=== PATIENT | male | born 1950 | race Caucasian/White ===

== ENCOUNTER 2019-07-31 13:14 | Emergency (ER) | payer MEDICARE, OTHER ==
[~2019-07-31] VITALS: Ht 170.2 cm; Wt 86.0 kg
[~2019-07-31 13:14] MED LIST: ALPR-624 PO; DOCU50CA3 PO; ENOX100S3 SQ; METO1TAB25 PO; OMEP40CA13 PO; ONDA4TAB6 PO; OXYC-658 PO
[2019-07-31] MEDS ORDERED: aspirin 81mg tab.chew PO ONE (13:25)
[2019-07-31 13:56] LABS: BASOPHILS # (AUTO) 0.1 X10'3 (0-0.2); BASOPHILS % (AUTO) 1.1 % (0-1); EOSINOPHILS # (AUTO) 0.3 X10'3 (0-0.9); HEMATOCRIT 48.6 % (42.0-52.0); HEMOGLOBIN 15.9 g/dl (14.0-17.9); LYMPHOCYTES # (AUTO) 1.4 X10'3 (1.1-4.8); LYMPHOCYTES % (AUTO) 15.8 % (21-51); MEAN CORPUSCULAR HEMOGLOBIN 26.1 PG (27.0-31.0); MEAN CORPUSCULAR HGB CONC 32.7 g/dL (33.0-36.5); MEAN CORPUSCULAR VOLUME 79.7 FL (78-98); MONOCYTES # (AUTO) 1.6 X10'3 (0-0.9); MONOCYTES % (AUTO) 17.2 % (2-12); NEUTROPHILS # (AUTO) 5.7 X10'3 (1.8-7.7); NEUTROPHILS % (AUTO) 62.9 % (42-75); PLATELET COUNT 178 X10'3 (140-440); RED BLOOD COUNT 6.09 X10'6 (4.70-6.10); RED CELL DISTRIBUTION WIDTH 17.5 % (11.5-14.5); WHITE BLOOD COUNT 9.1 X10'3 (4.5-11.0)
[2019-07-31] MEDS ORDERED: iohexol 350MG/ML 100ml bottle IV ONE (13:59)
[2019-07-31 14:09] LABS: ALANINE AMINOTRANSFERASE 36 U/L (12-78); ALBUMIN 3.5 G/DL (3.4-5.0); ALBUMIN/GLOBULIN RATIO 0.9 (1.1-1.5); ALKALINE PHOSPHATASE 100 IU/L (46-116); ANION GAP 5 (8-16); ASPARTATE AMINO TRANSFERASE 17 U/L (10-37); BILIRUBIN,TOTAL 1.5 MG/DL (0.1-1.0); BLOOD UREA NITROGEN 14 MG/DL (7-18); BUN/CREATININE RATIO 13.5 (5.4-32.0); CALCIUM 9.5 MG/DL (8.5-10.1); CHLORIDE 105 MMOL/L (99-107); CREATININE 1.04 MG/DL (0.60-1.10); GLUCOSE 124 MG/DL (70-104); POTASSIUM 4.4 MMOL/L (3.5-5.1); SODIUM 140 MMOL/L (135-145); TOTAL CARBON DIOXIDE 30.1 MMOL/L (24-32); TOTAL PROTEIN 7.3 G/DL (6.4-8.2); eGFR 71 ML/MIN
[2019-07-31] MEDS ORDERED: LORazepam 2 mg/ml vial IV ONE (14:15)
[2019-07-31 14:16] LABS: MAGNESIUM 1.7 MG/DL (1.5-2.4)
[2019-07-31 14:34] LABS: PLATELET ESTIMATE NORMAL; TOTAL CELLS COUNTED 100
[2019-07-31 14:35] LABS: ANISOCYTOSIS 1+; MICROCYTOSIS 1+
--- NOTE | 2019-07-31 14:45 | NUR ---
Pt. to CT
--- NOTE | 2019-07-31 15:07 | NUR ---
Pt. back from CT
[2019-07-31] MEDS ORDERED: ondansetron/PF 4mg/2ml inj IV ONE (15:20)
[2019-07-31] MEDS ORDERED: morphine 4 MG/ML inj SYRINge IV ONE (15:20)
[2019-07-31 15:47] VITALS: BP 105/61
== END 2019-07-31 15:49 | disposition home or self-care (01) ==
LOC: ER 13:15
DX: R07.89 Other chest pain (principal); I48.91 Unspecified atrial fibrillation; I12.9 Hypertensive chronic kidney disease with stage 1 through stage 4 chronic kidney disease, or unspecified chronic kidney disease; N18.9 Chronic kidney disease, unspecified; Z87.442 Personal history of urinary calculi; Z98.890 Other specified postprocedural states; Z95.0 Presence of cardiac pacemaker; Z79.899 Other long term (current) drug therapy; Z86.73 Personal history of transient ischemic attack (TIA), and cerebral infarction without residual deficits
CPT/HCPCS: 36415; 71275; 80053; 83735; 83880; 84484; 85025; 85379; 93005; 96374; 96375; 99285; J2060; J2270; J2405; Q9967

== ENCOUNTER 2019-09-17 10:55 | Emergency (ER) | payer OTHER ==
[~2019-09-17] VITALS: Ht 170.2 cm; Wt 95.4 kg
[~2019-09-17 10:55] MED LIST changes: -ALPR-624 PO; +AMOX-580 PO; +APIX5TAB3 PO; +DILT240C88 PO; -DOCU50CA3 PO; -ENOX100S3 SQ; +GABA-530 PO; +LOSA50TA3 PO; -METO1TAB25 PO; +MULT-20 PO; -ONDA4TAB6 PO; -OXYC-658 PO; +PRAV40TA3 PO; +THIA100T66 PO
[2019-09-17 11:35] LABS: BASOPHILS # (AUTO) 0.1 X10'3 (0-0.2); BASOPHILS % (AUTO) 0.9 % (0-1); EOSINOPHILS # (AUTO) 0.1 X10'3 (0-0.9); EOSINOPHILS % (AUTO) 1.2 % (0-6); HEMATOCRIT 30.6 % (42.0-52.0); HEMOGLOBIN 9.8 g/dl (14.0-17.9); LYMPHOCYTES # (AUTO) 1.3 X10'3 (1.1-4.8); LYMPHOCYTES % (AUTO) 10.9 % (21-51); MEAN CORPUSCULAR HEMOGLOBIN 27.6 PG (27.0-31.0); MEAN CORPUSCULAR HGB CONC 31.9 g/dL (33.0-36.5); MEAN CORPUSCULAR VOLUME 86.4 FL (78-98); MONOCYTES # (AUTO) 1.1 X10'3 (0-0.9); MONOCYTES % (AUTO) 9.5 % (2-12); NEUTROPHILS % (AUTO) 77.5 % (42-75); PLATELET COUNT 419 X10'3 (140-440); RED BLOOD COUNT 3.54 X10'6 (4.70-6.10); RED CELL DISTRIBUTION WIDTH 20.2 % (11.5-14.5); WHITE BLOOD COUNT 11.6 X10'3 (4.5-11.0)
[2019-09-17 11:49] LABS: ANISOCYTOSIS 3+; PLATELET ESTIMATE NORMAL
[2019-09-17 11:57] LABS: ALANINE AMINOTRANSFERASE 39 U/L (12-78); ALBUMIN 2.3 G/DL (3.4-5.0); ALBUMIN/GLOBULIN RATIO 0.6 (1.1-1.5); ALKALINE PHOSPHATASE 98 IU/L (46-116); ANION GAP 4 (8-16); ASPARTATE AMINO TRANSFERASE 44 U/L (10-37); BILIRUBIN,TOTAL 1.5 MG/DL (0.1-1.0); BLOOD UREA NITROGEN 7 MG/DL (7-18); BUN/CREATININE RATIO 7.1 (5.4-32.0); CALCIUM 9.3 MG/DL (8.5-10.1); CHLORIDE 105 MMOL/L (99-107); CREATININE 0.98 MG/DL (0.60-1.10); GLUCOSE 117 MG/DL (70-104); POTASSIUM 4.3 MMOL/L (3.5-5.1); SODIUM 139 MMOL/L (135-145); TOTAL CARBON DIOXIDE 29.9 MMOL/L (24-32); TOTAL PROTEIN 6.3 G/DL (6.4-8.2); eGFR 76 ML/MIN
[2019-09-17] MEDS ORDERED: iohexol 300mg/ml 100ml inj. ONE (13:14)
[2019-09-17] MEDS ORDERED: CefTRIAXone/D5W-Rocephin 1gm 50 ML IV ONE (14:30)
[2019-09-17 15:18] VITALS: BP 119/68
[2019-09-17] MEDS ORDERED: AMOX-422 PO (15:19)
== END 2019-09-17 15:55 | disposition home or self-care (01) ==
LOC: ER 10:55
DX: J86.9 Pyothorax without fistula (principal); R05 Cough; M79.89 Other specified soft tissue disorders; I48.91 Unspecified atrial fibrillation; I10 Essential (primary) hypertension; N18.9 Chronic kidney disease, unspecified; Z87.442 Personal history of urinary calculi; Z85.9 Personal history of malignant neoplasm, unspecified; Z98.890 Other specified postprocedural states; Z79.2 Long term (current) use of antibiotics; Z79.899 Other long term (current) drug therapy
CPT/HCPCS: 36415; 71045; 71260; 80053; 83605; 83880; 84145; 84484; 85025; 87040; 93005; 96365; 99285; J0696; Q9967

== ENCOUNTER 2020-03-13 08:09 | Day surgery (SDC) | payer MEDICARE, OTHER ==
[2020-03-13] VITALS (13 sets, daily range): BP systolic 123–173; BP diastolic 77–99
[~2020-03-13] VITALS: Ht 170.2 cm; Wt 86.6 kg
[~2020-03-13 08:09] MED LIST changes: +ALBU8.5H8 INH; -AMOX-580 PO; +AZIT500T9 PO; +LACT1CAP26 PO; +METO-395 PO; +TRAZ-256 PO
[2020-03-13] MEDS ORDERED: DOBUTamine 2000 MCG/250ML BAG IV SCH (09:50)
[2020-03-13 10:02] LABS: BASOPHILS # (AUTO) 0.1 X10'3 (0-0.2); EOSINOPHILS # (AUTO) 0.2 X10'3 (0-0.9); EOSINOPHILS % (AUTO) 4.1 % (0-6); HEMATOCRIT 46.7 % (42.0-52.0); HEMOGLOBIN 14.6 g/dl (14.0-17.9); LYMPHOCYTES # (AUTO) 1.6 X10'3 (1.1-4.8); MEAN CORPUSCULAR HEMOGLOBIN 22.1 PG (27.0-31.0); MEAN CORPUSCULAR HGB CONC 31.2 g/dL (33.0-36.5); WHITE BLOOD COUNT 5.4 X10'3 (4.5-11.0)
[2020-03-13 10:04] LABS: BASOPHILS % (AUTO) 1.8 % (0-1); LYMPHOCYTES % (AUTO) 29.1 % (21-51); MEAN CORPUSCULAR VOLUME 70.8 FL (78-98); MEAN PLATELET VOLUME 8.5 FL (7.4-10.4); MONOCYTES # (AUTO) 0.8 X10'3 (0-0.9); MONOCYTES % (AUTO) 14.1 % (2-12); NEUTROPHILS # (AUTO) 2.7 X10'3 (1.8-7.7); NEUTROPHILS % (AUTO) 50.9 % (42-75); PLATELET COUNT 198 X10'3 (140-440); RED BLOOD COUNT 6.59 X10'6 (4.70-6.10); RED CELL DISTRIBUTION WIDTH 20.8 % (11.5-14.5)
[2020-03-13 10:11] LABS: PARTIAL THROMBOPLASTIN TIME 29 SECONDS (22-32)
[2020-03-13 10:48] LABS: ANISOCYTOSIS 3+; ELLIPTOCYTES FEW; MICROCYTOSIS 1+; PLATELET ESTIMATE NORMAL
[2020-03-13 11:12] LABS: ALANINE AMINOTRANSFERASE 34 U/L (12-78); ALBUMIN 4.3 G/DL (3.4-5.0); ALBUMIN/GLOBULIN RATIO 1.2 (1.1-1.5); ALKALINE PHOSPHATASE 86 IU/L (46-116); ASPARTATE AMINO TRANSFERASE 21 U/L (10-37); BILIRUBIN,TOTAL 1.3 MG/DL (0.1-1.0); BLOOD UREA NITROGEN 18 MG/DL (7-18); BUN/CREATININE RATIO 16.4 (5.4-32.0); CALCIUM 11.2 MG/DL (8.5-10.1); CHLORIDE 106 MMOL/L (99-107); GLUCOSE 107 MG/DL (70-104); POTASSIUM 4.3 MMOL/L (3.5-5.1); TOTAL CARBON DIOXIDE 28.4 MMOL/L (24-32); eGFR 66 ML/MIN
[2020-03-13 11:13] LABS: ANION GAP 9 (8-16); SODIUM 143 MMOL/L (135-145)
[2020-03-13] MEDS ORDERED: normal saline 1000ml 1,000 ML IV SCH (11:15)
[2020-03-13] MEDS ORDERED: iohexol 350 MG/ML 50ML vial IV ONE (13:11)
[2020-03-13] MEDS ORDERED: iohexol 350MG/ML 100ml bottle IV ONE (13:11)
[2020-03-13] MEDS ORDERED: FERR325T28 PO (15:04)
[2020-03-13] MEDS ORDERED: TEST200V10 IM (15:04)
[2020-03-13] MEDS ORDERED: ECHI350C PO (15:04)
[2020-03-13] MEDS ORDERED: VITA-268 PO (15:04)
[2020-03-13] MEDS ORDERED: SILD50TA PO (15:04)
[2020-03-13] MEDS ORDERED: TRAZ-256 PO (15:04)
[2020-03-13] MEDS ORDERED: OMEP20CA15 PO (15:04)
[2020-03-13] MEDS ORDERED: ANAS1TAB24 PO (15:04)
[2020-03-27] MEDS ORDERED: SILD100T PO (17:50)
== END 2020-03-13 14:30 | disposition home or self-care (01) ==
LOC: SSTAY O 08:09 → EDSTATUS 10:00 → SSTAY O 14:30
PROVIDERS: ATTEND Internal Medicine Cardiovascular Disease
DX: I35.0 Nonrheumatic aortic (valve) stenosis (principal); R06.02 Shortness of breath; I10 Essential (primary) hypertension; E78.5 Hyperlipidemia, unspecified; Z95.0 Presence of cardiac pacemaker; K44.9 Diaphragmatic hernia without obstruction or gangrene; N40.0 Benign prostatic hyperplasia without lower urinary tract symptoms
CPT/HCPCS: 36415; 71275; 74174; 80053; 85025; 85610; 85730; 93005; 93350; 93880; J1250; Q9967; 85008

== ENCOUNTER 2020-03-18 06:13 | Day surgery (SDC) | payer MEDICARE, OTHER ==
[2020-03-18] VITALS (11 sets, daily range): BP systolic 89–139; BP diastolic 53–82
[~2020-03-18] VITALS: Ht 170.2 cm; Wt 87.3 kg
[~2020-03-18 06:13] MED LIST changes: -ALBU8.5H8 INH; +ANAS1TAB24 PO; -AZIT500T9 PO; +ECHI350C PO; +FERR325T28 PO; -LACT1CAP26 PO; -METO-395 PO; -MULT-20 PO; +OMEP20CA15 PO; -OMEP40CA13 PO; +SILD50TA PO; +TEST200V10 IM; -THIA100T66 PO; +VITA-268 PO
[2020-03-18] MEDS ORDERED: LORazepam 0.5 MG tablet PO PRN (06:45)
[2020-03-18] MEDS ORDERED: diphenhydrAMINE 25mg capsule PO PRN (06:45)
[2020-03-18] MEDS ORDERED: normal saline 1,000 ML IV SCH (06:45)
[2020-03-18] MEDS ORDERED: verapamil 2.5 mg/ml inj IV ONE (08:06)
[2020-03-18] MEDS ORDERED: iohexol 350MG/ML 100ml bottle IV ONE (08:06)
[2020-03-18] MEDS ORDERED: fentaNYL/PF 50MCG/1 ML 2ML syringe ONE (08:06)
[2020-03-18] MEDS ORDERED: nitroGLYCERIN-Tridil 50MG/D5W 250 ML IV ONE (08:06)
[2020-03-18] MEDS ORDERED: midazolam 2 mg/2 ml injection ONE ×2 (08:06→08:29)
[2020-03-18] MEDS ORDERED: LIDOcaine 1% (10mg/ml)w/preservative injection 20ml MDV ONE (08:06)
[2020-03-18] MEDS ORDERED: heparin 1,000unit/ml 10ml vial 10 ML ONE (08:06)
[2020-03-18] MEDS ORDERED: ondansetron/PF 4mg/2ml inj IV PRN (09:45)
[2020-03-18] MEDS ORDERED: proCHLORperazine 10 MG/2 ml inj IV PRN (09:45)
[2020-03-18] MEDS ORDERED: HYDROcodone/acetaminophen 10/325mg tab PO PRN (09:45)
[2020-03-18] MEDS ORDERED: HYDROcodone/acetaminophen 5mg/325mg tablet PO PRN (09:45)
[2020-03-18] MEDS ORDERED: OXAZEpam 15mg capsule PO PRN (09:45)
== END 2020-03-18 12:45 | disposition home or self-care (01) ==
LOC: SSTAY O 06:13
PROVIDERS: ATTEND Student in an Organized Health Care Education/Training Program
DX: I35.0 Nonrheumatic aortic (valve) stenosis (principal); I25.10 Atherosclerotic heart disease of native coronary artery without angina pectoris; I11.0 Hypertensive heart disease with heart failure; I50.22 Chronic systolic (congestive) heart failure; J43.9 Emphysema, unspecified; I49.5 Sick sinus syndrome; E78.5 Hyperlipidemia, unspecified; I48.91 Unspecified atrial fibrillation; Z86.73 Personal history of transient ischemic attack (TIA), and cerebral infarction without residual deficits; Z87.891 Personal history of nicotine dependence; Z95.0 Presence of cardiac pacemaker
CPT/HCPCS: 93005; 93458; 99152; 99153; C1760; C1769; C1894; J1644; J2001; J2250; J3010; Q9967; A4620; A5120; J3490

== ENCOUNTER 2020-04-10 05:42 | Inpatient (IN) | payer MEDICARE, OTHER ==
[2020-04-07 12:19] LABS: BASOPHILS # (AUTO) 0.1 X10'3 (0-0.2); BASOPHILS % (AUTO) 1.3 % (0-1); EOSINOPHILS # (AUTO) 0.2 X10'3 (0-0.9); EOSINOPHILS % (AUTO) 2.4 % (0-6); LYMPHOCYTES # (AUTO) 1.3 X10'3 (1.1-4.8); LYMPHOCYTES % (AUTO) 13.8 % (21-51); MEAN CORPUSCULAR HEMOGLOBIN 21.7 PG (27.0-31.0); MEAN CORPUSCULAR HGB CONC 30.9 g/dL (33.0-36.5); MEAN CORPUSCULAR VOLUME 70.2 FL (78-98); MEAN PLATELET VOLUME 8.5 FL (7.4-10.4); MONOCYTES # (AUTO) 0.9 X10'3 (0-0.9); MONOCYTES % (AUTO) 9.2 % (2-12); NEUTROPHILS # (AUTO) 7.1 X10'3 (1.8-7.7); NEUTROPHILS % (AUTO) 73.3 % (42-75); PRE OP PLATELET COUNT 225 X10'3 (140-440); RED BLOOD COUNT 6.22 X10'6 (4.70-6.10); RED CELL DISTRIBUTION WIDTH 19.8 % (11.5-14.5)
[2020-04-07 12:31] LABS: PRE OP INR 1.1 INR
[2020-04-07 12:34] LABS: ALBUMIN 3.8 G/DL (3.4-5.0); ALBUMIN/GLOBULIN RATIO 1.1 (1.1-1.5); ALKALINE PHOSPHATASE 85 IU/L (46-116); BLOOD UREA NITROGEN 15 MG/DL (7-18); BUN/CREATININE RATIO 12.2 (5.4-32.0); CALCIUM 9.5 MG/DL (8.5-10.1); CHLORIDE 106 MMOL/L (99-107); CREATININE 1.23 MG/DL (0.60-1.10); PRE OP ALT 29 U/L (30-65); PRE OP ANION GAP 7 (8-16); PRE OP AST 17 U/L (10-37); PRE OP POTASSIUM 4.3 MMOL/L (3.4-5.1); PRE OP SODIUM 142 MMOL/L (135-145); TOTAL CARBON DIOXIDE 28.8 MMOL/L (24-32); TOTAL PROTEIN 7.3 G/DL (6.4-8.2); eGFR 58 ML/MIN
[2020-04-07 12:36] LABS: PRE OP GLUCOSE 120 MG/DL (70-104)
[2020-04-07 12:37] LABS: PRE OP HEMATOCRIT 43.1 % (42.0-52.0)
[2020-04-07 13:14] LABS: ANISOCYTOSIS 2+; MICROCYTOSIS 1+; PLATELET ESTIMATE NORMAL
[2020-04-07 13:15] LABS: ELLIPTOCYTES FEW
--- NOTE | 2020-04-07 14:04 | NUR ---
SVN 2.5 MG/3 CC NS GIVEN WITH CPFT POST HR 71/88, RR 12/14, BS SLIGHTLY DIMINISHED BUT SEEMS CLEAR THROUGH OUT POST TX NO SIGNIFICANT CHANGE. Addendum: 04/07/20 at 1407 by Torin Lau RT Amended: Links added.
[2020-04-07 16:20] LABS: ABG BASE EXCESS -0.4 mmol/L (-2.0-2.0); ABG HCO3 23.6 mmol/L (22.0-26.0); ABG OXYGEN SATURATION 96.8 % (94-97); ABG PCO2 (T) 36.8 mmHg (35.0-48.0); ABG PO2 (T) 90.6 mmHg (75.0-100.0); ALLEN'S TEST POSITIVE; FCOHb 0.7 % (0.0-3.9); FMetHb 0.3 % (0.0-1.5); FO2Hb 95.8 % (94-97); TOTAL HEMOGLOBIN 13.8 G/dl (14.0-18.0)
[~2020-04-10] VITALS: Ht 170.2 cm; Wt 86.0 kg
[2020-04-10] VITALS (20 sets, daily range): BP systolic 91–141; BP diastolic 54–103
[~2020-04-10 05:42] MED LIST changes: -DILT240C88 PO; +DOCUMENT DATE & TIME OF BETA-BLOCKER PO ONE; -ECHI350C PO; -FERR325T28 PO; +METO50TA7 PO; +SILD100T PO; -SILD50TA PO; +THIA100T66 PO; -VITA-268 PO; +albuterol 2.5 MG/3 ML nebule NEB ONE; +ceFAZolin 2gm in dextrose, iso 50 ML IV ONE; +famotidine 20mg tablet PO ONE; +ringers solution, lacted 1,000 ML IV SCH; +vancomycin 1,500 MG in NS 300ml IV soln IV ONE
[2020-04-10] MEDS ORDERED: phenylephrine inj 50 MG in normal saline 250ml IV soln 245 ML IV PRN (06:00)
[2020-04-10] MEDS ORDERED: nitroGLYCERIN-Tridil 50MG/D5W 250 ML IV PRN (06:00)
[2020-04-10] MEDS ORDERED: ondansetron/PF 4mg/2ml inj IV PRN ×2 (06:00→08:40)
[2020-04-10] MEDS ORDERED: aspirin 325mg tablet PO ONE (06:00)
[2020-04-10] MEDS ORDERED: LIDOcaine 1% (10mg/ml) 2ml vial ONE (06:37)
[2020-04-10] MEDS ORDERED: iohexol 350MG/ML 100ml bottle IV ONE (06:56)
[2020-04-10] MEDS ORDERED: iohexol 350 MG/ML 50ML vial IV ONE (06:56)
[2020-04-10] MEDS ORDERED: heparin 1,000 UNITS/NS 500ml 500 ML ONE (07:08)
[2020-04-10] MEDS ORDERED: fentaNYL/PF 50MCG/1 ML 2ML syringe ONE (07:09)
[2020-04-10] MEDS ORDERED: midazolam 2 mg/2 ml injection ONE (07:09)
[2020-04-10] MEDS ORDERED: propofol inj 20 ML IV ONE (07:10)
[2020-04-10] MEDS ORDERED: rocuronium 10mg/ml inj IV ONE (07:10)
[2020-04-10] MEDS ORDERED: neostigmine methylsulfate 1 MG/ML 10ml vial ONE (07:24)
[2020-04-10] MEDS ORDERED: sevoflurane 250ml liquid IH ONE (07:24)
[2020-04-10] MEDS ORDERED: proCHLORperazine 10 MG/2 ml inj IV PRN (08:40)
[2020-04-10] MEDS ORDERED: morphine 4 MG/ML inj SYRINge IV PRN (08:40)
[2020-04-10] MEDS ORDERED: ringers solution, lacted 1,000 ML IV SCH (08:40)
[2020-04-10] MEDS ORDERED: morphine 2 MG/ML inj. syringe IV PRN (08:40)
[2020-04-10] MEDS ORDERED: meperidine/PF 25mg/ml syringe IV PRN ×3 (08:40)
[2020-04-10] MEDS ORDERED: sugammadex 200mg/2ml injection IV ONE (08:55)
[2020-04-10] MEDS ORDERED: heparin 1,000unit/ml 10ml vial 10 ML ONE ×2 (08:55)
[2020-04-10] MEDS ORDERED: ePHEDrine 50MG/ML INJ. ONE (08:55)
[2020-04-10] MEDS ORDERED: protamine sulfate 10mg/ml inj. ONE ×2 (09:06→09:08)
--- NOTE | 2020-04-10 09:31 | NUR ---
Received from OR via SURGICAL BED , accompanied by Anesthesiologist TAISHA and report given by Anesthesiolgist. PATIENT WITH 18G PIV IN LEFT UE, VSS AT THIS TIME. ART LINE LEFT UE, LEFT AND RIGHT INGUINAL PORT SITES ARE CDI. ADILSON PAIN.10L MASK ON WITH 98% SATURATIONS. Addendum: 04/10/20 at 0943 by Nathaniel Mari RN, RN Amended: Links added.
[2020-04-10] MEDS ORDERED: HYDROcodone/acetaminophen 5mg/325mg tablet PO PRN (09:55)
[2020-04-10] MEDS ORDERED: hydrALAZINE 20mg/ml inj. IV PRN (09:55)
[2020-04-10] MEDS ORDERED: acetaminophen 325mg tablet PO PRN (09:55)
[2020-04-10] MEDS ORDERED: traMADol 50MG tablet PO PRN (09:55)
[2020-04-10] MEDS ORDERED: LABETALOL HCL 200mg/40ml (5 MG/ML) inj. IV PRN (09:55)
[2020-04-10] MEDS ORDERED: normal saline 1000ml 1,000 ML IV SCH (09:55)
[2020-04-10] MEDS ORDERED: anastrozole 1 MG tablet PO SCH ×2 (10:00→10:07)
--- NOTE | 2020-04-10 10:14 | NUR ---
MD KAMARA AND SHILA PRESENT TO ASSESS. Addendum: 04/10/20 at 1015 by Nathaniel Mari RN RN Amended: Links added.
[2020-04-10] MEDS ORDERED: metoprolol succinate 25mg (24-HOUR) SR. Tablet PO ONE ×3 (10:15→22:00)
--- NOTE | 2020-04-10 11:01 | NUR ---
ALL CRITERIA FOR TRANSFER TO THE FLOOR HAS BEEN ACHIEVED. REPORT GIVEN AND ALL QUESTIONS ANSWERED, VSS. BED LOW 2 RAILS UP, CALL LIGHT PRESENT AND PATIENT HOOKED UP TO ALL LINES AND VSS. PATIENTS RN PRESENT TO ACCEPT CARE. VSS. RN PRESENT TO ACCEPT CARE. BOTH GROIN SITES CDI . RIGHT WITH SMALL BLOODY SPOT TO DRESSING . RN AWARE. PATIENT DENIES PAIN. RN UPDATED ON CHANGES IN ORDERS AND CARE OF PATIENT. WICHO STILL RUNNING AT A LOW RATE AND VSS STABLE. Addendum: 04/10/20 at 1114 by Nathaniel Peterson - AMARJIT RN Amended: Links added.
[2020-04-10] MEDS: normal saline 1000ml 1,000 ML IV SCH (11:56)
[2020-04-10] MEDS ORDERED: ceFAZolin/dextrose, iso. 1 GM/50ml bag IV SCH (16:00)
--- NOTE | 2020-04-10 16:22 | NUR ---
DR. KAMARA UPDATED ON ART LINE BP AND CUFF BP. NEW ORDER RECEIVED: DECREASE WICHO TO 0.3 MCG/KG/MIN
[2020-04-10] MEDS: ceFAZolin 1,000 MG in NS 50ML IVPB IV SCH (16:26)
--- NOTE | 2020-04-10 19:06 | NUR ---
Problems reprioritized. Patient report given, questions answered & plan of care reviewed with AMARJIT Mark.
--- NOTE | 2020-04-10 19:06 | NUR ---
Patient in room MED 311. I have received report from Yesika OCASIO and had the opportunity to ask questions and assume patient care.
--- NOTE | 2020-04-10 20:15 | NUR ---
I called Dr. Mendoza at 2014 regarding patient low blood pressure, systolic rate within the 110-120 and if I should give metoprolol and Cozaar. Dr. Mendoza ordered to not administer Cozaar and to only administer the metoprolol. Patient blood pressure was high at beginning of shift in the 160s, now it is in the lower end. Dr. Mendoza also said it is ok to d/c the art line in the radial since his blood pressures has decreased.
[2020-04-10] MEDS: vancomycin/NS ADD-VANTAGE 1,000 MG/250 ML BAG IV SCH (20:38)
[2020-04-10] MEDS: gabapentin 100mg capsule PO SCH (20:38)
[2020-04-10] MEDS ORDERED: losartan 50mg tablet PO SCH (21:00)
[2020-04-10] MEDS ORDERED: traZODone 50mg tablet PO SCH (21:00)
--- NOTE | 2020-04-10 23:15 | NUR ---
At 2315, patient art line was D/C by Simona FLOORWORKER. No complications noted. Patient tolerated well.
[2020-04-11] MEDS: ceFAZolin 1,000 MG in NS 50ML IVPB IV SCH ×2 (00:01→08:21)
[2020-04-11] MEDS: normal saline 1000ml 1,000 ML IV SCH (01:15)
[2020-04-11 02:00] VITALS: BP 106/67
[2020-04-11 06:00] VITALS: BP 117/76
--- NOTE | 2020-04-11 06:09 | NUR ---
Patient in room MED 311. I have received report from AMARJIT Mark and had the opportunity to ask questions and assume patient care.
--- NOTE | 2020-04-11 06:10 | NUR ---
Problems reprioritized. Patient report given, questions answered & plan of care reviewed with Hammad OCASIO.
[2020-04-11 07:27] LABS: BASOPHILS # (AUTO) 0.1 X10'3 (0-0.2); BASOPHILS % (AUTO) 1.4 % (0-1); EOSINOPHILS # (AUTO) 0.2 X10'3 (0-0.9); EOSINOPHILS % (AUTO) 2.6 % (0-6); HEMATOCRIT 39.6 % (42.0-52.0); HEMOGLOBIN 12.3 g/dl (14.0-17.9); LYMPHOCYTES % (AUTO) 12.6 % (21-51); MEAN CORPUSCULAR HGB CONC 31.1 g/dL (33.0-36.5); MEAN CORPUSCULAR VOLUME 70.8 FL (78-98); MEAN PLATELET VOLUME 8.4 FL (7.4-10.4); MONOCYTES # (AUTO) 1.2 X10'3 (0-0.9); MONOCYTES % (AUTO) 14.9 % (2-12); NEUTROPHILS # (AUTO) 5.6 X10'3 (1.8-7.7); NEUTROPHILS % (AUTO) 68.5 % (42-75); PLATELET COUNT 150 X10'3 (140-440); RED CELL DISTRIBUTION WIDTH 19.7 % (11.5-14.5); WHITE BLOOD COUNT 8.2 X10'3 (4.5-11.0)
[2020-04-11] MEDS ORDERED: pantoprazole 40mg Tablet.DR PO SCH (07:30)
[2020-04-11 07:41] LABS: ALBUMIN 3.4 G/DL (3.4-5.0); ANION GAP 9 (8-16); BLOOD UREA NITROGEN 16 MG/DL (7-18); BUN/CREATININE RATIO 12.5 (5.4-32.0); CALCIUM 8.8 MG/DL (8.5-10.1); CHLORIDE 107 MMOL/L (99-107); CREATININE 1.28 MG/DL (0.60-1.10); GLUCOSE 107 MG/DL (70-104); POTASSIUM 4.5 MMOL/L (3.5-5.1); SODIUM 143 MMOL/L (135-145); TOTAL CARBON DIOXIDE 27.3 MMOL/L (24-32); eGFR 56 ML/MIN
[2020-04-11] MEDS ORDERED: thiamine 100mg tablet PO SCH (08:00)
[2020-04-11] MEDS ORDERED: apixaban 5mg tablet PO SCH (08:00)
[2020-04-11] MEDS ORDERED: pravastatin 40mg tablet PO SCH (08:00)
[2020-04-11] MEDS ORDERED: metoprolol succinate 25mg (24-HOUR) SR. Tablet PO SCH (08:00)
[2020-04-11] MEDS: gabapentin 100mg capsule PO SCH (08:20)
[2020-04-11 09:08] LABS: ANISOCYTOSIS 2+; MICROCYTOSIS 1+; POLYCHROMASIA FEW
[2020-04-11 09:09] LABS: ELLIPTOCYTES FEW; LARGE PLATELETS FEW; PLATELET ESTIMATE NORMAL
[2020-04-11] MEDS: vancomycin/NS ADD-VANTAGE 1,000 MG/250 ML BAG IV SCH (09:16)
--- NOTE | 2020-04-11 12:58 | NUR ---
DAMIEN'd by charge at 1644.
== END 2020-04-11 12:40 | disposition home or self-care (01) | DRG 267 ==
LOC: PAS IN 05:42 → EDSTATUS 07:30 → MED 3N 10:50
PROVIDERS: ADMIT Internal Medicine Cardiovascular Disease; ATTEND Internal Medicine Cardiovascular Disease
PROC: B41D1ZZ Fluoroscopy of Aorta and Bilateral Lower Extremity Arteries using Low Osmolar Contrast (ICD-10-PCS; 2020-04-10)
PROC: B24BZZ4 Ultrasonography of Heart with Aorta, Transesophageal (ICD-10-PCS; 2020-04-10)
PROC: 5A1223Z Performance of Cardiac Pacing, Continuous (ICD-10-PCS; 2020-04-10)
PROC: 02RF38Z Replacement of Aortic Valve with Zooplastic Tissue, Percutaneous Approach (ICD-10-PCS; principal; 2020-04-10 07:24)
DX: I35.0 Nonrheumatic aortic (valve) stenosis (principal); Z00.6 Encounter for examination for normal comparison and control in clinical research program; I50.22 Chronic systolic (congestive) heart failure; I48.20 Chronic atrial fibrillation, unspecified; R06.02 Shortness of breath; R00.0 Tachycardia, unspecified; I11.0 Hypertensive heart disease with heart failure; Z85.47 Personal history of malignant neoplasm of testis; Z86.73 Personal history of transient ischemic attack (TIA), and cerebral infarction without residual deficits; Z87.01 Personal history of pneumonia (recurrent)
CPT/HCPCS: 33361; 36415; 36600; 71046; 80048; 80053; 82803; 82948; 85008; 85018; 85025; 85347; 85610; 85730; 86885; 86900; 86901; 86920; 87081; 87635; 93005; 93308; 93312; 93325; 93926; 94060; 94727; 94729; A4618; A6258; A6449; C1756; C1760; C1769; C1894; C9399; G0378; J0690; J1644; J2001; J2250; J2405; J2704; J2710; J2720; J3010; J3370; J3490; J7030; J7040; J7120; Q9967

== ENCOUNTER 2020-05-05 11:42 | Outpatient (CLI) | payer MEDICARE, OTHER ==
[~2020-05-05 11:42] MED LIST changes: -DOCUMENT DATE & TIME OF BETA-BLOCKER PO ONE; -albuterol 2.5 MG/3 ML nebule NEB ONE; -ceFAZolin 2gm in dextrose, iso 50 ML IV ONE; -famotidine 20mg tablet PO ONE; -ringers solution, lacted 1,000 ML IV SCH; -vancomycin 1,500 MG in NS 300ml IV soln IV ONE
== END 2020-05-05 23:59 | disposition home or self-care (01) ==
LOC: CARD DIAG 11:42
PROVIDERS: ATTEND Internal Medicine Cardiovascular Disease
DX: I08.1 Rheumatic disorders of both mitral and tricuspid valves (principal); I48.91 Unspecified atrial fibrillation; Z95.2 Presence of prosthetic heart valve
CPT/HCPCS: 93308

== ENCOUNTER 2020-05-08 14:07 | Outpatient (CLI) | payer MEDICARE, OTHER ==
[~2020-05-08] VITALS: Ht 170.2 cm; Wt 83.9 kg
[2020-05-08 17:44] VITALS: BP 142/76
--- NOTE | 2020-05-08 17:45 | NUR ---
Mr Jason and his , came in today for 1 month follow-up with Dr. Mendoza and Dr. Burroughs. 5 meter walk 5.53, 5.28, 5.12 average 5.31 seconds. [id number] completed. Questions answered.
== END 2020-05-08 23:59 | disposition home or self-care (01) ==
LOC: TAVR 14:07
PROVIDERS: ATTEND Internal Medicine Cardiovascular Disease
DX: I35.0 Nonrheumatic aortic (valve) stenosis (principal); R06.02 Shortness of breath; I65.29 Occlusion and stenosis of unspecified carotid artery
CPT/HCPCS: 93005

== ENCOUNTER 2020-05-15 13:13 | Observation (INO) | payer OTHER, MEDICARE ==
[~2020-05-15] VITALS: Ht 170.2 cm; Wt 84.1 kg
[2020-05-15] MEDS ORDERED: diltiazem 5mg/ml 5ml inj. IV ONE (13:45)
[2020-05-15 13:49] LABS: BASOPHILS # (AUTO) 0.1 X10'3 (0-0.2); BASOPHILS % (AUTO) 1.3 % (0-1); EOSINOPHILS # (AUTO) 0.2 X10'3 (0-0.9); EOSINOPHILS % (AUTO) 2.5 % (0-6); HEMATOCRIT 45.2 % (42.0-52.0); HEMOGLOBIN 13.9 g/dl (14.0-17.9); LYMPHOCYTES # (AUTO) 1.5 X10'3 (1.1-4.8); MEAN CORPUSCULAR HEMOGLOBIN 22.3 PG (27.0-31.0); MEAN CORPUSCULAR HGB CONC 30.7 g/dL (33.0-36.5); MEAN CORPUSCULAR VOLUME 72.6 FL (78-98); MEAN PLATELET VOLUME 8.5 FL (7.4-10.4); MONOCYTES % (AUTO) 12.4 % (2-12); NEUTROPHILS # (AUTO) 5.1 X10'3 (1.8-7.7); NEUTROPHILS % (AUTO) 64.8 % (42-75); PLATELET COUNT 154 X10'3 (140-440); RED BLOOD COUNT 6.22 X10'6 (4.70-6.10); WHITE BLOOD COUNT 7.9 X10'3 (4.5-11.0)
[2020-05-15] MEDS ORDERED: nitroGLYCERIN-Tridil 50MG/D5W 250 ML IV PRN (13:55)
[2020-05-15 14:04] LABS: ALANINE AMINOTRANSFERASE 27 U/L (12-78); ALBUMIN 3.8 G/DL (3.4-5.0); ALBUMIN/GLOBULIN RATIO 1.1 (1.1-1.5); ALKALINE PHOSPHATASE 82 IU/L (46-116); ANION GAP 9 (8-16); ASPARTATE AMINO TRANSFERASE 23 U/L (10-37); BILIRUBIN,TOTAL 1.3 MG/DL (0.1-1.0); BLOOD UREA NITROGEN 16 MG/DL (7-18); BUN/CREATININE RATIO 13.4 (5.4-32.0); CALCIUM 9.6 MG/DL (8.5-10.1); CHLORIDE 107 MMOL/L (99-107); CREATININE 1.19 MG/DL (0.60-1.10); GLUCOSE 114 MG/DL (70-104); POTASSIUM 4.6 MMOL/L (3.5-5.1); SODIUM 141 MMOL/L (135-145); TOTAL CARBON DIOXIDE 25.4 MMOL/L (24-32); TOTAL PROTEIN 7.3 G/DL (6.4-8.2); eGFR 60 ML/MIN
[2020-05-15 14:30] LABS: ANISOCYTOSIS 2+; HYPOCHROMASIA 1+; MICROCYTOSIS 1+; PLATELET ESTIMATE NORMAL; POIKILOCYTOSIS 1+; POLYCHROMASIA FEW
[2020-05-15 14:31] LABS: ELLIPTOCYTES 2+; SCHISTOCYTES 1+; SPHEROCYTES FEW
[2020-05-15] MEDS: diltiazem-NS 100mg/100ml 100 ML IV SCH (14:34)
[2020-05-15] MEDS ORDERED: VITA-268 PO (16:47)
[2020-05-15] MEDS ORDERED: ECHI350C PO (16:47)
[2020-05-15] MEDS ORDERED: FERR29CA PO (16:47)
[2020-05-15] MEDS ORDERED: DILT120C94 PO (16:47)
[2020-05-15] MEDS ORDERED: ALBU8.5H8 INH (16:47)
[2020-05-15] MEDS ORDERED: GABA-530 PO (16:47)
[2020-05-15] MEDS ORDERED: potassium Cl 20 mEq SR tablet PO PRN ×2 (17:30)
[2020-05-15] MEDS ORDERED: magnesium 4gm in 100ml NS 100 ML IV PRN (17:30)
[2020-05-15] MEDS ORDERED: gabapentin 100mg capsule PO PRN (17:30)
[2020-05-15] MEDS ORDERED: potassium Cl 40MEQ/1/2NS 520ml 520 ML IV PRN ×2 (17:30)
[2020-05-15] MEDS ORDERED: magnesium 2GM in 50ml NS 50 ML IV PRN (17:30)
[2020-05-15] MEDS ORDERED: acetaminophen 325mg tablet PO PRN (17:30)
[2020-05-15] MEDS ORDERED: magnesium Cl slow-release 64mg tablet PO PRN (17:30)
[2020-05-15] MEDS: K and/or MAG REPLACEMENT MC SCH (20:00)
[2020-05-15] MEDS: docusate sod 100mg capsule PO SCH (20:00)
[2020-05-15] MEDS ORDERED: losartan 50mg tablet PO SCH (21:00)
[2020-05-15] MEDS ORDERED: traZODone 50mg tablet PO SCH (21:00)
[2020-05-15] MEDS ORDERED: pravastatin 40mg tablet PO SCH (21:00)
[2020-05-15] MEDS: gabapentin 100mg capsule PO SCH (21:34)
[2020-05-15] MEDS: carVEDilol 3.125mg tablet PO SCH (21:35)
[2020-05-15] MEDS: apixaban 5mg tablet PO SCH (21:35)
[2020-05-16 01:52] LABS: EOSINOPHILS # (AUTO) 0.2 X10'3 (0-0.9); MEAN CORPUSCULAR HEMOGLOBIN 22.5 PG (27.0-31.0)
[2020-05-16 01:54] LABS: BASOPHILS # (AUTO) 0.1 X10'3 (0-0.2); BASOPHILS % (AUTO) 1.7 % (0-1); EOSINOPHILS % (AUTO) 2.8 % (0-6); HEMATOCRIT 39.2 % (42.0-52.0); HEMOGLOBIN 12.2 g/dl (14.0-17.9); LYMPHOCYTES # (AUTO) 1.9 X10'3 (1.1-4.8); LYMPHOCYTES % (AUTO) 23.9 % (21-51); MEAN CORPUSCULAR HGB CONC 31.2 g/dL (33.0-36.5); MEAN CORPUSCULAR VOLUME 72.2 FL (78-98); MEAN PLATELET VOLUME 8.5 FL (7.4-10.4); MONOCYTES # (AUTO) 0.9 X10'3 (0-0.9); NEUTROPHILS # (AUTO) 4.7 X10'3 (1.8-7.7); NEUTROPHILS % (AUTO) 60.6 % (42-75); PLATELET COUNT 149 X10'3 (140-440); RED BLOOD COUNT 5.42 X10'6 (4.70-6.10); RED CELL DISTRIBUTION WIDTH 19.7 % (11.5-14.5); WHITE BLOOD COUNT 7.8 X10'3 (4.5-11.0)
[2020-05-16 02:08] LABS: ALBUMIN 3.5 G/DL (3.4-5.0); ANION GAP 7 (8-16); BLOOD UREA NITROGEN 19 MG/DL (7-18); BUN/CREATININE RATIO 16.5 (5.4-32.0); CALCIUM 9.4 MG/DL (8.5-10.1); CHLORIDE 107 MMOL/L (99-107); CREATININE 1.15 MG/DL (0.60-1.10); GLUCOSE 116 MG/DL (70-104); MAGNESIUM 1.7 MG/DL (1.5-2.4); POTASSIUM 4.3 MMOL/L (3.5-5.1); SODIUM 140 MMOL/L (135-145); TOTAL CARBON DIOXIDE 25.9 MMOL/L (24-32); eGFR 63 ML/MIN
[2020-05-16 04:17] LABS: ANISOCYTOSIS 2+; MICROCYTOSIS 1+; POIKILOCYTOSIS 1+
[2020-05-16 04:20] LABS: ELLIPTOCYTES 1+; HYPOGRANULAR PLATELETS FEW; SCHISTOCYTES 1+; SPHEROCYTES FEW
[2020-05-16 04:21] LABS: PLATELET ESTIMATE NORMAL; POLYCHROMASIA FEW
[2020-05-16] MEDS ORDERED: pantoprazole 40mg Tablet.DR PO SCH (07:30)
[2020-05-16] MEDS ORDERED: ECHINACEA PURPUREA AERIAL PO SCH (08:00)
[2020-05-16] MEDS: K and/or MAG REPLACEMENT MC SCH (08:00)
[2020-05-16] MEDS: gabapentin 100mg capsule PO SCH (09:27)
[2020-05-16] MEDS: apixaban 5mg tablet PO SCH (09:27)
[2020-05-16] MEDS: carVEDilol 3.125mg tablet PO SCH (09:27)
[2020-05-16] MEDS: diltiazem-NS 100mg/100ml 100 ML IV SCH (09:27)
[2020-05-16] MEDS: docusate sod 100mg capsule PO SCH (09:28)
[2020-05-16] MEDS ORDERED: carVEDilol 3.125mg tablet PO ONE (11:05)
[2020-05-16] MEDS ORDERED: LOSA50TA3 PO (11:07)
[2020-05-16] MEDS ORDERED: CARV6.253 PO (11:07)
[2020-05-16] MEDS ORDERED: FURO-150 PO (11:13)
[2020-05-16] MEDS ORDERED: furosemide 20 MG/2 ML vial IV ONE (11:15)
--- NOTE | 2020-05-16 11:43 | NUR ---
Pt's diltiazem drip was stopped and addtional dose of Coreg po and lasix given according to the treatment plan devised by Dr. Alvarenga, Dr. Larson and Dr. Jang. Pt is aware of this plan.
--- NOTE | 2020-05-16 12:22 | NUR ---
PICC NURSE IN ROOM
--- NOTE | 2020-05-16 14:36 | NUR ---
SPOKE TO DR SHEIKH ABOUT THE PLAN OF CARE FOR THE PT PER MD HE IS GOING TO CONTACT DR CHERY HOSPITALIST FOR D/C PLANS,WILL LET THE PRIMARY NURSE LAYNE KNOWN.
--- NOTE | 2020-05-16 15:13 | NUR ---
Paged Dr. Larson regarding the discharge and to get the final ok to send the patient home. The patient is voicing a desire to go home. Dr. Larson gave the ok to have the patient discharged following the instructions he gave and follow up as planned, instructed.
[2020-05-16 15:55] VITALS: BP 132/64
[2020-05-16] MEDS ORDERED: carVEDilol 3.125mg tablet PO SCH (20:00)
== END 2020-05-16 15:55 | disposition home or self-care (01) ==
LOC: ER 13:14 → ED HOLD 17:28
PROVIDERS: ADMIT Internal Medicine; ATTEND Internal Medicine
DX: I48.91 Unspecified atrial fibrillation (principal); I13.0 Hypertensive heart and chronic kidney disease with heart failure and stage 1 through stage 4 chronic kidney disease, or unspecified chronic kidney disease; I50.21 Acute systolic (congestive) heart failure; N18.9 Chronic kidney disease, unspecified; E78.5 Hyperlipidemia, unspecified; F32.9 Major depressive disorder, single episode, unspecified; G62.9 Polyneuropathy, unspecified; I21.A1 Myocardial infarction type 2; Z85.47 Personal history of malignant neoplasm of testis; I25.2 Old myocardial infarction; K21.9 Gastro-esophageal reflux disease without esophagitis; Z86.73 Personal history of transient ischemic attack (TIA), and cerebral infarction without residual deficits; Z95.0 Presence of cardiac pacemaker; Z95.2 Presence of prosthetic heart valve; Z79.82 Long term (current) use of aspirin; Z79.01 Long term (current) use of anticoagulants; Z79.899 Other long term (current) drug therapy
CPT/HCPCS: 36415; 71045; 80048; 80053; 83735; 83880; 84484; 85008; 85025; 93005; 93308; 96365; 96366; 96375; 96376; 99285; G0378; J1940; J3490

== ENCOUNTER 2021-03-13 14:20 | Emergency (ER) | payer OTHER, MEDICARE ==
[~2021-03-13] VITALS: Ht 170.2 cm; Wt 81.0 kg
[~2021-03-13 14:20] MED LIST changes: +ALBU8.5H17 INH; +CARV6.253 PO; +ECHI350C PO; +FERR29CA PO; +FURO-150 PO; -METO50TA7 PO; -THIA100T66 PO; +VITA-268 PO
[2021-03-13 14:59] VITALS: BP 122/75
[2021-03-13] MEDS ORDERED: CefTRIAXone 2gm/D5W 50ml BAG 50 ML IV ONE (15:10)
[2021-03-13] MEDS ORDERED: acetaminophen 325mg tablet PO ONE (15:10)
[2021-03-13 15:30] LABS: BASOPHILS # (AUTO) 0.1 X10'3 (0-0.2); BASOPHILS % (AUTO) 0.6 % (0-1); EOSINOPHILS % (AUTO) 0.2 % (0-6); HEMATOCRIT 49.2 % (42.0-52.0); HEMOGLOBIN 15.7 g/dl (14.0-17.9); LYMPHOCYTES # (AUTO) 0.5 X10'3 (1.1-4.8); LYMPHOCYTES % (AUTO) 4.1 % (21-51); MEAN CORPUSCULAR HEMOGLOBIN 26.6 PG (27.0-31.0); MEAN CORPUSCULAR HGB CONC 31.9 g/dL (33.0-36.5); MEAN CORPUSCULAR VOLUME 83.3 FL (78-98); MEAN PLATELET VOLUME 8.1 FL (7.4-10.4); MONOCYTES # (AUTO) 1.4 X10'3 (0-0.9); MONOCYTES % (AUTO) 12.6 % (2-12); NEUTROPHILS # (AUTO) 9.1 X10'3 (1.8-7.7); NEUTROPHILS % (AUTO) 82.5 % (42-75); PLATELET COUNT 114 X10'3 (140-440); RED BLOOD COUNT 5.91 X10'6 (4.70-6.10); RED CELL DISTRIBUTION WIDTH 17.4 % (11.5-14.5); WHITE BLOOD COUNT 11.1 X10'3 (4.5-11.0)
[2021-03-13 15:58] LABS: ALANINE AMINOTRANSFERASE 22 U/L (12-78); ALBUMIN 2.9 G/DL (3.4-5.0); ALBUMIN/GLOBULIN RATIO 0.7 (1.1-1.5); ALKALINE PHOSPHATASE 84 IU/L (46-116); ANION GAP 6 (8-16); ASPARTATE AMINO TRANSFERASE 14 U/L (10-37); BILIRUBIN,TOTAL 3.5 MG/DL (0.1-1.0); BLOOD UREA NITROGEN 25 MG/DL (7-18); BUN/CREATININE RATIO 14.5 (5.4-32.0); CALCIUM 9.6 MG/DL (8.5-10.1); CHLORIDE 104 MMOL/L (99-107); CREATININE 1.72 MG/DL (0.60-1.10); GLUCOSE 134 MG/DL (70-104); LIPASE < 50 U/L (73-393); POTASSIUM 4.6 MMOL/L (3.5-5.1); SODIUM 139 MMOL/L (135-145); TOTAL CARBON DIOXIDE 29.2 MMOL/L (24-32); TOTAL PROTEIN 7.2 G/DL (6.4-8.2); eGFR 40 ML/MIN
[2021-03-13] MEDS ORDERED: LEVO500T89 PO (16:58)
[2021-03-13 16:59] LABS: CLARITY,URINE CLOUDY (Clear); COLOR,URINE AMBER (Yellow); GLUCOSE, URINE NEGATIVE (Neg); KETONES,URINE NEGATIVE (Neg); NITRITES, URINE NEGATIVE (Neg); OCCULT BLOOD,URINE LARGE (Neg); PROTEIN,URINE 300 mg/dl (Neg); UA COLLECTION TYPE CLN CATCH MIDSTREAM
[2021-03-13 17:00] LABS: LEUKOCYTE ESTERASE ,URINE TRACE (Neg); UROBILINOGEN,URINE 0.2 E.U/dL (0.2-1.0)
[2021-03-13 17:01] LABS: BACTERIA,URINE 2+ /HPF (Neg); MUCUS STRANDS FEW /LPF (Neg); RBC,URINE 50-100 /HPF (0-2); SQUAMOUS EPITHELIAL CELL,UR FEW /LPF (FEW); WBC CLUMPS,URINE MODERATE /HPF (NEGATIVE); WBC,URINE 50-100 /HPF (0-4)
--- NOTE | 2021-03-14 08:24 | NUR ---
PT CALLED AND SPOKE WITH HIS . NOTIFED THAT LAB WORK RETURNED INDICATING THAT HE NEEDED TO RETURN TO BE TREATED WITH IV ANTIBIOTICS. PT'S STATED THAT PT WAS ASLEEP AND THAT SHE WILL NOTIFIY HIM FABRIZIO AND WILL RETURN FOR FURTHER TREATMENT REQUESTED.
[2021-03-14] MEDS ORDERED: LOSA50TA3 PO (12:26)
[2021-03-14] MEDS ORDERED: CARV-49 PO (12:27)
[2021-03-14] MEDS ORDERED: FURO-150 PO (12:27)
[2021-03-14] MEDS ORDERED: CARV-50 PO ×2 (23:17→23:23)
[2021-03-14] MEDS ORDERED: SACU1TAB PO ×2 (23:30→23:34)
[2021-03-14] MEDS ORDERED: SPIR25TA5 PO (23:39)
[2021-03-14] MEDS ORDERED: SILD50TA PO (23:40)
== END 2021-03-13 18:17 | disposition home or self-care (01) ==
LOC: ER 14:20
DX: N39.0 Urinary tract infection, site not specified (principal); N20.0 Calculus of kidney; M54.50 Low back pain, unspecified; R30.0 Dysuria; R50.9 Fever, unspecified; I12.9 Hypertensive chronic kidney disease with stage 1 through stage 4 chronic kidney disease, or unspecified chronic kidney disease; N18.9 Chronic kidney disease, unspecified; I48.91 Unspecified atrial fibrillation; I25.2 Old myocardial infarction; Z86.73 Personal history of transient ischemic attack (TIA), and cerebral infarction without residual deficits; Z87.442 Personal history of urinary calculi; Z85.9 Personal history of malignant neoplasm, unspecified; Z95.0 Presence of cardiac pacemaker; Z98.890 Other specified postprocedural states; Z72.89 Other problems related to lifestyle; Z79.2 Long term (current) use of antibiotics; Z79.899 Other long term (current) drug therapy
CPT/HCPCS: 36415; 74176; 80053; 81001; 83605; 83690; 84145; 85025; 87040; 87088; 96365; 96366; 99284; J0696; 87077; 87186

== ENCOUNTER 2021-03-14 09:17 | Inpatient (IN) | payer OTHER, MEDICARE ==
[~2021-03-14] VITALS: Ht 170.2 cm; Wt 86.8 kg
[~2021-03-14 09:17] MED LIST changes: +LEVO500T89 PO
[2021-03-14] MEDS ORDERED: normal saline 1000ML IV soln IV ONE (10:10)
[2021-03-14] MEDS ORDERED: CefTRIAXone/D5W-Rocephin 1gm 50 ML IV ONE (10:30)
[2021-03-14 11:10] LABS: CLARITY,URINE CLEAR (Clear); COLOR,URINE DARK YELLOW (Yellow); GLUCOSE, URINE NEGATIVE (Neg); KETONES,URINE 15 mg/dl (Neg); NITRITES, URINE NEGATIVE (Neg); OCCULT BLOOD,URINE MODERATE (Neg); PROTEIN,URINE 100 mg/dl (Neg); UA COLLECTION TYPE CLN CATCH MIDSTREAM
[2021-03-14 11:11] LABS: LEUKOCYTE ESTERASE ,URINE NEGATIVE (Neg); UROBILINOGEN,URINE 0.2 E.U/dL (0.2-1.0)
[2021-03-14 11:14] LABS: MEAN CORPUSCULAR HEMOGLOBIN 26.8 PG (27.0-31.0); MEAN CORPUSCULAR VOLUME 82.3 FL (78-98); MONOCYTES # (AUTO) 1.3 X10'3 (0-0.9); NEUTROPHILS # (AUTO) 7.9 X10'3 (1.8-7.7)
[2021-03-14 11:16] LABS: BASOPHILS % (AUTO) 0.4 % (0-1); EOSINOPHILS % (AUTO) 0.4 % (0-6); HEMATOCRIT 46.1 % (42.0-52.0); LYMPHOCYTES # (AUTO) 0.6 X10'3 (1.1-4.8); LYMPHOCYTES % (AUTO) 5.9 % (21-51); MEAN CORPUSCULAR HGB CONC 32.5 g/dL (33.0-36.5); MEAN PLATELET VOLUME 8.6 FL (7.4-10.4); MONOCYTES % (AUTO) 13.5 % (2-12); NEUTROPHILS % (AUTO) 79.8 % (42-75); PLATELET COUNT 110 X10'3 (140-440); RED CELL DISTRIBUTION WIDTH 17.9 % (11.5-14.5); WHITE BLOOD COUNT 9.9 X10'3 (4.5-11.0)
[2021-03-14 11:22] LABS: BACTERIA,URINE FEW /HPF (Neg); MUCUS STRANDS FEW /LPF (Neg); RBC,URINE 0-2 /HPF (0-2); SQUAMOUS EPITHELIAL CELL,UR NONE SEEN /LPF (FEW)
[2021-03-14 11:32] LABS: ALANINE AMINOTRANSFERASE 23 U/L (12-78); ALBUMIN 2.7 G/DL (3.4-5.0); ALBUMIN/GLOBULIN RATIO 0.6 (1.1-1.5); ALKALINE PHOSPHATASE 90 IU/L (46-116); ANION GAP 10 (8-16); ASPARTATE AMINO TRANSFERASE 13 U/L (10-37); BILIRUBIN,TOTAL 2.2 MG/DL (0.1-1.0); BLOOD UREA NITROGEN 29 MG/DL (7-18); BUN/CREATININE RATIO 16.2 (5.4-32.0); CALCIUM 9.4 MG/DL (8.5-10.1); CHLORIDE 101 MMOL/L (99-107); CREATININE 1.79 MG/DL (0.60-1.10); GLUCOSE 118 MG/DL (70-104); MAGNESIUM 1.6 MG/DL (1.5-2.4); POTASSIUM 4.2 MMOL/L (3.5-5.1); SODIUM 138 MMOL/L (135-145); TOTAL CARBON DIOXIDE 27.4 MMOL/L (24-32); TOTAL PROTEIN 7.3 G/DL (6.4-8.2); eGFR 38 ML/MIN
[2021-03-14 11:56] LABS: ANISOCYTOSIS 1+; MICROCYTOSIS 1+; PLATELET ESTIMATE DECREASED; TOTAL CELLS COUNTED 100
[2021-03-14] MEDS ORDERED: potassium Cl 40MEQ/1/2NS 520ml 520 ML IV PRN ×2 (12:10)
[2021-03-14] MEDS ORDERED: potassium Cl 20 mEq SR tablet PO PRN ×2 (12:10)
[2021-03-14] MEDS ORDERED: magnesium Cl slow-release 64mg tablet PO PRN (12:10)
[2021-03-14] MEDS ORDERED: ondansetron/PF 4mg/2ml inj IV PRN (12:10)
[2021-03-14] MEDS ORDERED: magnesium 4gm in 100ml NS 100 ML IV PRN (12:10)
[2021-03-14] MEDS ORDERED: magnesium 2GM in 50ml NS 50 ML IV PRN (12:10)
[2021-03-14] MEDS ORDERED: LOSA50TA3 PO (12:26)
[2021-03-14] MEDS ORDERED: CARV-49 PO (12:27)
[2021-03-14] MEDS ORDERED: FURO-150 PO (12:27)
[2021-03-14] MEDS: acetaminophen 325mg tablet PO PRN ×2 (12:47→18:31)
[2021-03-14] MEDS: normal saline 1000ml 1,000 ML IV SCH (12:48)
[2021-03-14] MEDS: K and/or MAG REPLACEMENT MC SCH (19:13)
--- NOTE | 2021-03-14 23:00 | NUR ---
PT REFUSING FLUIDS AT THIS TIME. STATES HE WANTS TO SLEEP A FEW HOURS THEN HE WILL TAKE THEM AGAIN.
[2021-03-14] MEDS ORDERED: CARV-50 PO ×2 (23:17→23:23)
[2021-03-14] MEDS ORDERED: SACU1TAB PO ×2 (23:30→23:34)
[2021-03-14] MEDS ORDERED: SPIR25TA5 PO (23:39)
[2021-03-14] MEDS ORDERED: SILD50TA PO (23:40)
[2021-03-15] MEDS ORDERED: gabapentin 100mg capsule PO PRN (00:35)
[2021-03-15] MEDS ORDERED: sacubitril/valsartan 24mg-26mg tablet PO SCH (01:00)
[2021-03-15] MEDS ORDERED: carVEDilol 12.5mg tablet PO SCH (01:00)
[2021-03-15] MEDS: apixaban 5mg tablet PO SCH ×2 (01:00→08:22)
[2021-03-15] MEDS ORDERED: traZODone 50mg tablet PO SCH (01:00)
[2021-03-15] MEDS ORDERED: temazepam 15mg capsule PO ONE (01:45)
[2021-03-15] MEDS ORDERED: pantoprazole 40mg Tablet.DR PO SCH (07:30)
[2021-03-15] MEDS ORDERED: spironolactone 25 MG tablet PO SCH (08:00)
[2021-03-15] MEDS: K and/or MAG REPLACEMENT MC SCH (08:00)
[2021-03-15] MEDS ORDERED: FERROUS BIS GLYCINATE CHELATE PO SCH (08:00)
[2021-03-15] MEDS ORDERED: gabapentin 100mg capsule PO SCH (08:00)
[2021-03-15] MEDS ORDERED: carvedilol 6.25mg tablet PO SCH (08:00)
[2021-03-15] MEDS ORDERED: CefTRIAXone/D5W-Rocephin 1gm 50 ML IV SCH (08:00)
[2021-03-15] MEDS: normal saline 1000ml 1,000 ML IV SCH ×2 (08:22→08:23)
[2021-03-15 09:43] LABS: ALBUMIN 2.5 G/DL (3.4-5.0); ANION GAP 10 (8-16); BASOPHILS % (AUTO) 0.6 % (0-1); BLOOD UREA NITROGEN 27 MG/DL (7-18); BUN/CREATININE RATIO 18.8 (5.4-32.0); CALCIUM 9.9 MG/DL (8.5-10.1); CHLORIDE 104 MMOL/L (99-107); CREATININE 1.44 MG/DL (0.60-1.10); EOSINOPHILS # (AUTO) 0.1 X10'3 (0-0.9); EOSINOPHILS % (AUTO) 1.4 % (0-6); GLUCOSE 120 MG/DL (70-104); HEMATOCRIT 45.4 % (42.0-52.0); HEMOGLOBIN 14.5 g/dl (14.0-17.9); LYMPHOCYTES # (AUTO) 0.9 X10'3 (1.1-4.8); LYMPHOCYTES % (AUTO) 11.1 % (21-51); MAGNESIUM 1.9 MG/DL (1.5-2.4); MEAN CORPUSCULAR HEMOGLOBIN 26.4 PG (27.0-31.0); MEAN CORPUSCULAR HGB CONC 31.8 g/dL (33.0-36.5); MEAN CORPUSCULAR VOLUME 83.1 FL (78-98); MONOCYTES # (AUTO) 1.5 X10'3 (0-0.9); MONOCYTES % (AUTO) 19.4 % (2-12); NEUTROPHILS # (AUTO) 5.2 X10'3 (1.8-7.7); NEUTROPHILS % (AUTO) 67.5 % (42-75); PLATELET COUNT 118 X10'3 (140-440); RED BLOOD COUNT 5.47 X10'6 (4.70-6.10); RED CELL DISTRIBUTION WIDTH 17.8 % (11.5-14.5); SODIUM 136 MMOL/L (135-145); WHITE BLOOD COUNT 7.8 X10'3 (4.5-11.0); eGFR 48 ML/MIN
[2021-03-15] MEDS ORDERED: LEVO500T89 PO (11:46)
[2021-03-15 12:08] VITALS: BP 128/73
--- NOTE | 2021-03-15 12:39 | NUR ---
DISCHARGE PRESCRIPTION FOR LEVOFLOXACIN CALLED IN TO [facility] ON [address], PER PATIENT REQUEST.
[2021-03-15] MEDS ORDERED: pravastatin 40mg tablet PO SCH (21:00)
[2021-03-18] MEDS ORDERED: anastrozole 1 MG tablet PO SCH (08:00)
== END 2021-03-15 12:39 | disposition home or self-care (01) | DRG 689 ==
LOC: ER 09:18 → ED HOLD 12:10
PROVIDERS: ADMIT Internal Medicine; ATTEND Internal Medicine
DX: N39.0 Urinary tract infection, site not specified (principal); N17.0 Acute kidney failure with tubular necrosis; R78.81 Bacteremia; I50.22 Chronic systolic (congestive) heart failure; I13.0 Hypertensive heart and chronic kidney disease with heart failure and stage 1 through stage 4 chronic kidney disease, or unspecified chronic kidney disease; B96.20 Unspecified Escherichia coli [E. coli] as the cause of diseases classified elsewhere; N18.9 Chronic kidney disease, unspecified; F10.20 Alcohol dependence, uncomplicated; Z66 Do not resuscitate; N28.1 Cyst of kidney, acquired; E78.5 Hyperlipidemia, unspecified; I25.10 Atherosclerotic heart disease of native coronary artery without angina pectoris; I48.91 Unspecified atrial fibrillation; Z79.01 Long term (current) use of anticoagulants; Z86.73 Personal history of transient ischemic attack (TIA), and cerebral infarction without residual deficits; I25.2 Old myocardial infarction; Z87.442 Personal history of urinary calculi; Z95.2 Presence of prosthetic heart valve
CPT/HCPCS: 36415; 74176; 80048; 80053; 81001; 83605; 83690; 83735; 84145; 85007; 85025; 87040; 87077; 87088; 87186; 96365; 96366; 99284; 99285; G0378; J0696; J7030

== ENCOUNTER 2022-02-26 16:43 | Emergency (ER) | payer OTHER ==
[~2022-02-26 16:43] MED LIST changes: -ALBU8.5H17 INH; +CARV-49 PO; +CARV-50 PO; -CARV6.253 PO; -ECHI350C PO; -FURO-150 PO; -LEVO500T89 PO; -LOSA50TA3 PO; +SACU1TAB PO; -SILD100T PO; +SILD50TA PO; +SPIR25TA5 PO; -TEST200V10 IM; +TEST200V33 IM
[2022-02-26 17:26] LABS: BASOPHILS # (AUTO) 0.1 X10'3 (0-0.2); BASOPHILS % (AUTO) 1.3 % (0-1); EOSINOPHILS # (AUTO) 0.2 X10'3 (0-0.9); EOSINOPHILS % (AUTO) 2.3 % (0-6); HEMATOCRIT 46.3 % (42.0-52.0); LYMPHOCYTES # (AUTO) 1.9 X10'3 (1.1-4.8); LYMPHOCYTES % (AUTO) 23.9 % (21-51); MEAN CORPUSCULAR HEMOGLOBIN 24.8 PG (27.0-31.0); MEAN CORPUSCULAR HGB CONC 32.4 g/dL (33.0-36.5); MEAN CORPUSCULAR VOLUME 76.5 FL (78-98); MONOCYTES # (AUTO) 1.1 X10'3 (0-0.9); MONOCYTES % (AUTO) 13.9 % (2-12); NEUTROPHILS # (AUTO) 4.7 X10'3 (1.8-7.7); NEUTROPHILS % (AUTO) 58.6 % (42-75); PLATELET COUNT 137 X10'3 (140-440); RED BLOOD COUNT 6.05 X10'6 (4.70-6.10); RED CELL DISTRIBUTION WIDTH 17.4 % (11.5-14.5)
[2022-02-26 17:38] LABS: APTT 27 SECONDS (22-32)
[2022-02-26 17:40] LABS: ALANINE AMINOTRANSFERASE 34 U/L (12-78); ALBUMIN/GLOBULIN RATIO 1.3 (1.1-1.5); ALKALINE PHOSPHATASE 63 IU/L (46-116); ANION GAP 9 (8-16); ASPARTATE AMINO TRANSFERASE 24 U/L (10-37); BILIRUBIN,TOTAL 1.3 MG/DL (0.1-1.0); BLOOD UREA NITROGEN 19 MG/DL (7-18); BUN/CREATININE RATIO 12.5 (5.4-32.0); CHLORIDE 103 MMOL/L (99-107); CREATININE 1.52 MG/DL (0.60-1.10); POTASSIUM 4.3 MMOL/L (3.5-5.1); SODIUM 138 MMOL/L (135-145); TOTAL CARBON DIOXIDE 25.9 MMOL/L (24-32); TOTAL PROTEIN 7.1 G/DL (6.4-8.2); eGFR 45 ML/MIN
[2022-02-26 17:48] LABS: GLUCOSE 104 MG/DL (70-104)
[2022-02-26] MEDS ORDERED: thiamine 100mg/ml 2ml inj. IV ONE (18:20)
[2022-02-26] MEDS ORDERED: thiamine inj. 500 MG in normal saline 100ml IV soln 100 ML IV ONE (18:50)
[2022-02-26 20:07] VITALS: BP 129/78
== END 2022-02-26 20:11 | disposition home or self-care (01) ==
LOC: ER 16:44
DX: G45.4 Transient global amnesia (principal); R41.0 Disorientation, unspecified; I48.91 Unspecified atrial fibrillation; I12.9 Hypertensive chronic kidney disease with stage 1 through stage 4 chronic kidney disease, or unspecified chronic kidney disease; N18.9 Chronic kidney disease, unspecified; I25.2 Old myocardial infarction; Z86.73 Personal history of transient ischemic attack (TIA), and cerebral infarction without residual deficits; Z87.442 Personal history of urinary calculi; Z85.9 Personal history of malignant neoplasm, unspecified; Z95.0 Presence of cardiac pacemaker; Z98.890 Other specified postprocedural states; Z72.89 Other problems related to lifestyle; Z79.899 Other long term (current) drug therapy
CPT/HCPCS: 36415; 70450; 71045; 80053; 82948; 85025; 85610; 85730; 86885; 86900; 86901; 93005; 96365; 96376; 99285; J3411; J3490

== ENCOUNTER 2022-08-10 08:04 | Inpatient (IN) | payer OTHER, MEDICARE ==
[~2022-08-10] VITALS: Ht 165.1 cm; Wt 92.9 kg
[2022-08-10 08:50] LABS: BASOPHILS # (AUTO) 0.1 X10'3 (0-0.2); BASOPHILS % (AUTO) 0.8 % (0-1); EOSINOPHILS % (AUTO) 0.4 % (0-6); HEMOGLOBIN 15.5 g/dl (14.0-17.9); LYMPHOCYTES # (AUTO) 0.5 X10'3 (1.1-4.8); LYMPHOCYTES % (AUTO) 7.3 % (21-51); MEAN CORPUSCULAR HEMOGLOBIN 24.8 PG (27.0-31.0); MEAN CORPUSCULAR HGB CONC 31.6 g/dL (33.0-36.5); MEAN CORPUSCULAR VOLUME 78.3 FL (78-98); MONOCYTES # (AUTO) 0.4 X10'3 (0-0.9); MONOCYTES % (AUTO) 6.3 % (2-12); NEUTROPHILS % (AUTO) 85.2 % (42-75); PLATELET COUNT 131 X10'3 (140-440); RED BLOOD COUNT 6.26 X10'6 (4.70-6.10); RED CELL DISTRIBUTION WIDTH 18.3 % (11.5-14.5); WHITE BLOOD COUNT 7.1 X10'3 (4.5-11.0)
[2022-08-10 09:04] LABS: APTT 23 SECONDS (22-32); D-DIMER 1.74 MG/L FEU (0-0.50)
[2022-08-10 09:20] LABS: ALANINE AMINOTRANSFERASE 28 U/L (12-78); ALBUMIN 3.5 G/DL (3.4-5.0); ALBUMIN/GLOBULIN RATIO 1.2 (1.1-1.5); ALKALINE PHOSPHATASE 57 IU/L (46-116); ANION GAP 10 (8-16); ASPARTATE AMINO TRANSFERASE 29 U/L (10-37); BILIRUBIN,TOTAL 1.8 MG/DL (0.1-1.0); BLOOD UREA NITROGEN 14 MG/DL (7-18); BUN/CREATININE RATIO 11.6 (10.0-20.0); CHLORIDE 106 MMOL/L (99-107); CREATININE 1.21 MG/DL (0.60-1.10); GLUCOSE 133 MG/DL (70-104); POTASSIUM 4.4 MMOL/L (3.5-5.1); SODIUM 141 MMOL/L (135-145); TOTAL CARBON DIOXIDE 24.6 MMOL/L (24-32); TOTAL PROTEIN 6.5 G/DL (6.4-8.2); eGFR 59 ML/MIN
[2022-08-10] MEDS ORDERED: iohexol 350MG/ML 100ml bottle IV ONE (09:48)
[2022-08-10] MEDS ORDERED: cefepime 2g/NS 100ml ADVANTAGE 100 ML IV ONE (11:05)
[2022-08-10] MEDS ORDERED: normal saline 500ml IV soln 500 ML IV SCH (11:05)
[2022-08-10] MEDS ORDERED: vancomycin/NS 1 GM ADD-VANTAGE 250 ML X 1 DOSE IV ONE (11:10)
[2022-08-10] MEDS ORDERED: magnesium Cl slow-release 64mg tablet PO PRN (12:30)
[2022-08-10] MEDS ORDERED: potassium Cl 20 mEq SR tablet PO PRN ×2 (12:30)
[2022-08-10] MEDS ORDERED: mag hydrox/Alum hydrox/simeth 30ml oral suspension PO PRN (12:30)
[2022-08-10] MEDS ORDERED: magnesium hydroxide 30ml (MOM) UD suspension PO PRN (12:30)
[2022-08-10] MEDS ORDERED: ondansetron/PF 4mg/2ml inj IV PRN (12:30)
[2022-08-10] MEDS ORDERED: acetaminophen 325mg tablet PO PRN (12:30)
[2022-08-10] MEDS ORDERED: magnesium 4gm in 100ml NS 100 ML IV PRN (12:30)
[2022-08-10] MEDS ORDERED: potassium Cl 40MEQ/1/2NS 520ml 520 ML IV PRN (12:30)
[2022-08-10] MEDS ORDERED: TADA20TA43 PO (12:59)
[2022-08-10] MEDS: normal saline 1000ml 1,000 ML IV SCH ×2 (14:11→17:58)
--- NOTE | 2022-08-10 15:03 | NUR ---
Page sent to Dr Hu r/t patient request for probiotic.
--- NOTE | 2022-08-10 15:55 | NUR ---
Patient in room ED 5. I have received report from Morrison DISASTER RECOVERY SPECIALIST and had the opportunity to ask questions and assume patient care.
--- NOTE | 2022-08-10 16:00 | NUR ---
Patient arrived to unit via wheelchair. and EMT accompanied patient up. No complaints of pain or discomfort noted at this time. Call light is in reach and BLL.
[2022-08-10 16:05] VITALS: BP 138/70
[2022-08-10 18:00] VITALS: BP 134/71
--- NOTE | 2022-08-10 18:27 | NUR ---
Problems reprioritized. Patient report given, questions answered & plan of care reviewed with José Luis MARTINEZ.
--- NOTE | 2022-08-10 18:43 | NUR ---
AGREE WITH PIANO MECHANIC APPRENTICE ASSESSMENT UPON PATIENT ARRIVAL TO PCU FROM ER.
[2022-08-10] MEDS ORDERED: traZODone 50mg tablet PO ONE (19:25)
[2022-08-10] MEDS ORDERED: carVEDilol 12.5mg tablet PO ONE (19:25)
[2022-08-10] MEDS ORDERED: sacubitril/valsartan 24mg-26mg tablet PO ONE (19:25)
[2022-08-10] MEDS ORDERED: gabapentin 400mg capsule PO ONE (19:25)
[2022-08-10] MEDS: docusate sod 100mg capsule PO SCH (19:27)
[2022-08-10] MEDS ORDERED: gabapentin 100mg capsule PO ONE (19:30)
[2022-08-10] MEDS: K and/or MAG REPLACEMENT MC SCH (20:00)
[2022-08-10] MEDS: cefepime 2g/NS 100ml ADVANTAGE 100 ML IV SCH (21:36)
[2022-08-11 01:40] VITALS: BP 128/69
[2022-08-11] MEDS: normal saline 1000ml 1,000 ML IV SCH ×2 (03:50→16:17)
--- NOTE | 2022-08-11 06:20 | NUR ---
Patient in room PCU 3017. I have received report from José Luis MARTINEZ and had the opportunity to ask questions and assume patient care.
[2022-08-11 06:49] LABS: BASOPHILS # (AUTO) 0.1 X10'3 (0-0.2); BASOPHILS % (AUTO) 0.7 % (0-1); EOSINOPHILS # (AUTO) 0.1 X10'3 (0-0.9); EOSINOPHILS % (AUTO) 0.5 % (0-6); HEMATOCRIT 43.7 % (42.0-52.0); HEMOGLOBIN 13.7 g/dl (14.0-17.9); LYMPHOCYTES % (AUTO) 9.5 % (21-51); MEAN CORPUSCULAR HEMOGLOBIN 24.7 PG (27.0-31.0); MEAN CORPUSCULAR HGB CONC 31.2 g/dL (33.0-36.5); MEAN PLATELET VOLUME 8.2 FL (7.4-10.4); MONOCYTES % (AUTO) 9.1 % (2-12); NEUTROPHILS # (AUTO) 8.9 X10'3 (1.8-7.7); NEUTROPHILS % (AUTO) 80.2 % (42-75); PLATELET COUNT 134 X10'3 (140-440); RED BLOOD COUNT 5.54 X10'6 (4.70-6.10); RED CELL DISTRIBUTION WIDTH 18.6 % (11.5-14.5); WHITE BLOOD COUNT 11.1 X10'3 (4.5-11.0)
[2022-08-11 06:50] LABS: ALBUMIN 3.3 G/DL (3.4-5.0); ANION GAP 7 (8-16); BLOOD UREA NITROGEN 15 MG/DL (7-18); BUN/CREATININE RATIO 12.9 (10.0-20.0); CALCIUM 9.3 MG/DL (8.5-10.1); CHLORIDE 106 MMOL/L (99-107); CREATININE 1.16 MG/DL (0.60-1.10); GLUCOSE 123 MG/DL (70-104); MAGNESIUM 1.5 MG/DL (1.5-2.4); POTASSIUM 3.9 MMOL/L (3.5-5.1); SODIUM 141 MMOL/L (135-145); eGFR 62 ML/MIN
[2022-08-11 07:00] VITALS: BP 128/68
[2022-08-11] MEDS: cefepime 2g/NS 100ml ADVANTAGE 100 ML IV SCH ×2 (07:51→19:41)
[2022-08-11] MEDS: K and/or MAG REPLACEMENT MC SCH ×2 (08:00→19:11)
[2022-08-11] MEDS: docusate sod 100mg capsule PO SCH ×2 (08:00→19:12)
[2022-08-11] MEDS ORDERED: carvedilol 6.25mg tablet PO ONE (08:25)
[2022-08-11] MEDS ORDERED: non-formulary drug (Tadalafil 1 TAB) PO PRN (08:25)
--- NOTE | 2022-08-11 08:53 | NUR ---
Dr. Boss gave order to restart home medications and a one time order for Coreg this morning. MD put in order. Gave order for Culturelle capsule daily. Nurse will put in order.
[2022-08-11] MEDS ORDERED: anastrozole 1 MG tablet PO SCH (09:18)
[2022-08-11] MEDS: lactobacillus rhamnosus 10,000 MMU CELLS/CAPSULE PO SCH (09:26)
--- NOTE | 2022-08-11 10:34 | NUR ---
PAGER ID: [phone] MESSAGE: [phone] Jason Patient doesn't want the anastrozole while he is here. He would like the Gabapentin, entresto, and protonix this morning. Thank you Marisol MARTINEZ [phone]
--- NOTE | 2022-08-11 10:52 | NUR ---
Spoke with Dr Boss about patient's AM home medications starting today. MD gave verbal order for one time doses of Gabapentin 100mg, Entresto 24-26 mg 1 tab, Protonix 40 mg
[2022-08-11] MEDS ORDERED: pantoprazole 40mg Tablet.DR PO ONE (10:55)
[2022-08-11] MEDS ORDERED: gabapentin 100mg capsule PO ONE (10:55)
[2022-08-11] MEDS ORDERED: sacubitril/valsartan 24mg-26mg tablet PO ONE (10:55)
[2022-08-11 11:00] VITALS: BP 127/68
[2022-08-11 16:00] VITALS: BP 135/66
[2022-08-11 18:00] VITALS: BP 149/77
--- NOTE | 2022-08-11 18:37 | NUR ---
Problems reprioritized. Patient report given, questions answered & plan of care reviewed with Joanna OCASIO.
[2022-08-11] MEDS: gabapentin 100mg capsule PO SCH (19:42)
[2022-08-11] MEDS ORDERED: carVEDilol 12.5mg tablet PO SCH (21:00)
[2022-08-11] MEDS ORDERED: sacubitril/valsartan 24mg-26mg tablet PO SCH (21:00)
[2022-08-11] MEDS ORDERED: traZODone 50mg tablet PO SCH (21:00)
[2022-08-11] MEDS ORDERED: atorvastatin 10mg tablet PO SCH (21:00)
[2022-08-11 22:00] VITALS: BP 155/80
[2022-08-12] MEDS: normal saline 1000ml 1,000 ML IV SCH (04:30)
[2022-08-12 06:08] LABS: BASOPHILS % (AUTO) 0.5 % (0-1); EOSINOPHILS # (AUTO) 0.1 X10'3 (0-0.9); EOSINOPHILS % (AUTO) 1.2 % (0-6); HEMATOCRIT 40.1 % (42.0-52.0); HEMOGLOBIN 12.9 g/dl (14.0-17.9); LYMPHOCYTES # (AUTO) 0.9 X10'3 (1.1-4.8); LYMPHOCYTES % (AUTO) 10.1 % (21-51); MEAN CORPUSCULAR HEMOGLOBIN 25.3 PG (27.0-31.0); MEAN PLATELET VOLUME 8.2 FL (7.4-10.4); MONOCYTES # (AUTO) 1.1 X10'3 (0-0.9); MONOCYTES % (AUTO) 12.3 % (2-12); NEUTROPHILS # (AUTO) 6.6 X10'3 (1.8-7.7); NEUTROPHILS % (AUTO) 75.9 % (42-75); PLATELET COUNT 126 X10'3 (140-440); RED BLOOD COUNT 5.08 X10'6 (4.70-6.10); RED CELL DISTRIBUTION WIDTH 18.4 % (11.5-14.5); WHITE BLOOD COUNT 8.7 X10'3 (4.5-11.0)
[2022-08-12 06:14] LABS: ANION GAP 8 (8-16); BLOOD UREA NITROGEN 12 MG/DL (7-18); BUN/CREATININE RATIO 11.8 (10.0-20.0); CALCIUM 9.4 MG/DL (8.5-10.1); CHLORIDE 106 MMOL/L (99-107); CREATININE 1.02 MG/DL (0.60-1.10); GLUCOSE 122 MG/DL (70-104); MAGNESIUM 1.5 MG/DL (1.5-2.4); SODIUM 140 MMOL/L (135-145); TOTAL CARBON DIOXIDE 25.7 MMOL/L (24-32); eGFR 72 ML/MIN
[2022-08-12 07:23] VITALS: BP 146/80
[2022-08-12] MEDS: cefepime 2g/NS 100ml ADVANTAGE 100 ML IV SCH (07:54)
[2022-08-12] MEDS: lactobacillus rhamnosus 10,000 MMU CELLS/CAPSULE PO SCH (07:55)
[2022-08-12] MEDS: gabapentin 100mg capsule PO SCH (07:55)
[2022-08-12] MEDS ORDERED: sacubitril/valsartan 24mg-26mg tablet PO SCH (08:00)
[2022-08-12] MEDS ORDERED: carvedilol 6.25mg tablet PO SCH (08:00)
[2022-08-12] MEDS ORDERED: vitamin B comp w/Vit. C tab 1 TAB TABLET PO SCH (08:00)
[2022-08-12] MEDS: docusate sod 100mg capsule PO SCH (08:00)
[2022-08-12] MEDS: K and/or MAG REPLACEMENT MC SCH (08:00)
[2022-08-12] MEDS ORDERED: pantoprazole 40mg Tablet.DR PO SCH (08:00)
[2022-08-12] MEDS ORDERED: LEVO750T68 PO (09:43)
== END 2022-08-12 10:15 | disposition home or self-care (01) | DRG 194 ==
LOC: ER 08:04 → ED HOLD 12:31 → PCU 3S 16:00
PROVIDERS: ADMIT Family Medicine; ATTEND Family Medicine
PROC: B32T1ZZ Computerized Tomography (CT Scan) of Left Pulmonary Artery using Low Osmolar Contrast (ICD-10-PCS; principal; 2022-08-10)
PROC: B3201ZZ Computerized Tomography (CT Scan) of Thoracic Aorta using Low Osmolar Contrast (ICD-10-PCS; 2022-08-10)
PROC: B32S1ZZ Computerized Tomography (CT Scan) of Right Pulmonary Artery using Low Osmolar Contrast (ICD-10-PCS; 2022-08-10)
DX: J18.9 Pneumonia, unspecified organism (principal); I13.0 Hypertensive heart and chronic kidney disease with heart failure and stage 1 through stage 4 chronic kidney disease, or unspecified chronic kidney disease; I48.91 Unspecified atrial fibrillation; E78.5 Hyperlipidemia, unspecified; Z96.651 Presence of right artificial knee joint; F10.20 Alcohol dependence, uncomplicated; I50.9 Heart failure, unspecified; N18.9 Chronic kidney disease, unspecified; R09.02 Hypoxemia; I25.2 Old myocardial infarction; Z85.47 Personal history of malignant neoplasm of testis; Z86.73 Personal history of transient ischemic attack (TIA), and cerebral infarction without residual deficits; Z87.442 Personal history of urinary calculi; Z95.2 Presence of prosthetic heart valve; Z95.810 Presence of automatic (implantable) cardiac defibrillator; Z79.899 Other long term (current) drug therapy
CPT/HCPCS: 36415; 71045; 71275; 80048; 80053; 83605; 83735; 83880; 84484; 85025; 85379; 85610; 85730; 87040; 87081; 96365; 99285; G0378; J0692; J3370; J3490; J7030; J7040; Q9967

== ENCOUNTER 2023-04-02 08:55 | Emergency (ER) | payer OTHER, MEDICARE ==
[~2023-04-02] VITALS: Ht 170.2 cm; Wt 88.8 kg
[~2023-04-02 08:55] MED LIST changes: -FERR29CA PO; -SILD50TA PO; -SPIR25TA5 PO; +TADA20TA43 PO
[2023-04-02 09:17] VITALS: BP 135/81; PULSE 75; RESP 16; TEMP 98; O2SAT 97
[2023-04-02 09:55] LABS: MEAN CORPUSCULAR HGB CONC 31.3 g/dL (33.0-36.5)
[2023-04-02 09:57] LABS: BASOPHILS # (AUTO) 0.1 X10'3 (0-0.2); BASOPHILS % (AUTO) 1.3 % (0-1); EOSINOPHILS # (AUTO) 0.1 X10'3 (0-0.9); EOSINOPHILS % (AUTO) 1.7 % (0-6); HEMATOCRIT 46.6 % (42.0-52.0); HEMOGLOBIN 14.6 g/dl (14.0-17.9); LYMPHOCYTES # (AUTO) 0.9 X10'3 (1.1-4.8); LYMPHOCYTES % (AUTO) 10.9 % (21-51); MEAN CORPUSCULAR VOLUME 76.9 FL (78-98); MEAN PLATELET VOLUME 7.9 FL (7.4-10.4); MONOCYTES # (AUTO) 0.8 X10'3 (0-0.9); MONOCYTES % (AUTO) 9.8 % (2-12); NEUTROPHILS # (AUTO) 6.1 X10'3 (1.8-7.7); NEUTROPHILS % (AUTO) 76.3 % (42-75); PLATELET COUNT 171 X10'3 (140-440); RED BLOOD COUNT 6.06 X10'6 (4.70-6.10); RED CELL DISTRIBUTION WIDTH 18.6 % (11.5-14.5)
[2023-04-02 10:12] LABS: ALANINE AMINOTRANSFERASE 45 U/L (12-78); ALBUMIN 3.9 G/DL (3.4-5.0); ALBUMIN/GLOBULIN RATIO 1.1 (1.1-1.5); ALKALINE PHOSPHATASE 77 IU/L (46-116); ANION GAP 8 (8-16); ASPARTATE AMINO TRANSFERASE 35 U/L (10-37); BILIRUBIN,TOTAL 1.4 MG/DL (0.1-1.0); BLOOD UREA NITROGEN 16 MG/DL (7-18); BUN/CREATININE RATIO 11.8 (10.0-20.0); CALCIUM 10.2 MG/DL (8.5-10.1); CHLORIDE 102 MMOL/L (99-107); CREATININE 1.36 MG/DL (0.60-1.10); GLUCOSE 148 MG/DL (70-104); POTASSIUM 4.4 MMOL/L (3.5-5.1); SODIUM 138 MMOL/L (135-145); TOTAL CARBON DIOXIDE 27.8 MMOL/L (24-32); TOTAL PROTEIN 7.4 G/DL (6.4-8.2); eCRCL 46 ML/MIN; eGFR 52 ML/MIN
[2023-04-02 10:19] LABS: PRO BRAIN NATRIURETIC PEPTIDE 518 PG/ML (0-125)
[2023-04-02] MEDS ORDERED: LEVO250T74 PO (10:58)
== END 2023-04-02 11:13 | disposition home or self-care (01) ==
LOC: ER 08:55
DX: R05.9 Cough, unspecified (principal); Z20.822 Contact with and (suspected) exposure to COVID-19; R07.9 Chest pain, unspecified; I11.0 Hypertensive heart disease with heart failure; I13.0 Hypertensive heart and chronic kidney disease with heart failure and stage 1 through stage 4 chronic kidney disease, or unspecified chronic kidney disease; N18.9 Chronic kidney disease, unspecified; I50.9 Heart failure, unspecified; I1A.0 Resistant hypertension; Z88.8 Allergy status to other drugs, medicaments and biological substances; Z79.899 Other long term (current) drug therapy
CPT/HCPCS: 36415; 71046; 80053; 83605; 83880; 84145; 84484; 85025; 87040; 87811; 93005; 99285

== ENCOUNTER 2023-05-15 16:33 | Emergency (ER) | payer OTHER, MEDICARE ==
[~2023-05-15] VITALS: Ht 170.2 cm; Wt 88.6 kg
[2023-05-15] MEDS ORDERED: iohexol 350MG/ML 100ml bottle IV ONE (16:57)
[2023-05-15 17:16] LABS: BASOPHILS # (AUTO) 0.1 X10'3 (0-0.2); BASOPHILS % (AUTO) 0.6 % (0-1); EOSINOPHILS % (AUTO) 0.2 % (0-6); LYMPHOCYTES # (AUTO) 0.4 X10'3 (1.1-4.8); MEAN PLATELET VOLUME 8.4 FL (7.4-10.4); MONOCYTES # (AUTO) 1.2 X10'3 (0-0.9); MONOCYTES % (AUTO) 10.1 % (2-12); NEUTROPHILS # (AUTO) 10.6 X10'3 (1.8-7.7); NEUTROPHILS % (AUTO) 86.1 % (42-75); PLATELET COUNT 133 X10'3 (140-440); WHITE BLOOD COUNT 12.3 X10'3 (4.5-11.0)
[2023-05-15 17:25] LABS: APTT 23 SECONDS (22-32); INR 1.1 INR; PROTHROMBIN TIME 11.6 SECONDS (9.0-12.0)
[2023-05-15 17:27] LABS: ALANINE AMINOTRANSFERASE 39 U/L (12-78); ALBUMIN 3.9 G/DL (3.4-5.0); ALBUMIN/GLOBULIN RATIO 1.1 (1.1-1.5); ALKALINE PHOSPHATASE 69 IU/L (46-116); ANION GAP 10 (8-16); ASPARTATE AMINO TRANSFERASE 34 U/L (10-37); BLOOD UREA NITROGEN 17 MG/DL (7-18); BUN/CREATININE RATIO 11.9 (10.0-20.0); CHLORIDE 99 MMOL/L (99-107); CREATININE 1.43 MG/DL (0.60-1.10); GLUCOSE 134 MG/DL (70-104); POTASSIUM 3.8 MMOL/L (3.5-5.1); SODIUM 136 MMOL/L (135-145); TOTAL CARBON DIOXIDE 27.2 MMOL/L (24-32); TOTAL PROTEIN 7.3 G/DL (6.4-8.2); eCRCL 43 ML/MIN; eGFR 48 ML/MIN
[2023-05-15 17:33] LABS: PRO BRAIN NATRIURETIC PEPTIDE 1472 PG/ML (0-125)
[2023-05-15 17:34] LABS: HEMOGLOBIN 13.8 g/dl (14.0-17.9); MEAN CORPUSCULAR HEMOGLOBIN 24.4 PG (27.0-31.0); MEAN CORPUSCULAR HGB CONC 32.2 g/dL (33.0-36.5); MEAN CORPUSCULAR VOLUME 75.7 FL (78-98); RED BLOOD COUNT 5.68 X10'6 (4.70-6.10); RED CELL DISTRIBUTION WIDTH 17.6 % (11.5-14.5)
[2023-05-15 18:18] LABS: ANISOCYTOSIS 2+; MICROCYTOSIS 1+; PLATELET ESTIMATE DECREASED
[2023-05-15 18:19] LABS: ELLIPTOCYTES 1+
[2023-05-15 18:20] LABS: SCHISTOCYTES FEW
[2023-05-15 19:53] VITALS: BP 149/68; PULSE 75; RESP 18; TEMP 98.3; O2SAT 99
== END 2023-05-15 19:57 | disposition left against medical advice (07) ==
LOC: ER 16:43
DX: F10.10 Alcohol abuse, uncomplicated (principal); R41.0 Disorientation, unspecified; R05.9 Cough, unspecified; R68.83 Chills (without fever); R53.1 Weakness; I48.91 Unspecified atrial fibrillation; I25.2 Old myocardial infarction; I12.9 Hypertensive chronic kidney disease with stage 1 through stage 4 chronic kidney disease, or unspecified chronic kidney disease; N18.6 End stage renal disease; Z72.89 Other problems related to lifestyle; Z79.899 Other long term (current) drug therapy; Z86.73 Personal history of transient ischemic attack (TIA), and cerebral infarction without residual deficits
CPT/HCPCS: 36415; 70450; 70496; 70498; 71045; 80053; 83880; 84484; 85008; 85025; 85610; 85730; 93005; 99285; J3490; Q9967